=== PATIENT | female | born 1975 | race Caucasian/White ===

== ENCOUNTER 2021-09-27 11:44 | Emergency (ER) | payer SELFPAY ==
[~2021-09-27] VITALS: Ht 157.5 cm; Wt 93.4 kg
[2021-09-27] MEDS ORDERED: KETOROLAC 30 MG/ML VIAL IM ONE (12:25)
[2021-09-27] MEDS ORDERED: CYCLOBENZAPRINE 10 MG TAB PO ONE (12:25)
[2021-09-27] MEDS ORDERED: KETOROLAC 30 MG/ML VIAL ONE (13:45)
[2021-09-27] MEDS ORDERED: NAPR-54 PO (14:26)
[2021-09-27] MEDS ORDERED: CYCL-711 PO (14:26)
[2021-09-27] MEDS ORDERED: LIDO1ADH47 TP (14:26)
--- NOTE | 2021-09-27 14:49 | NUR ---
Patient discharged with v/s stable. Written and verbal after care instructions given and explained. Patient alert, oriented and verbalized understanding of instructions. Ambulatory with steady gait. All questions addressed prior to discharge. ID band removed. Patient advised to follow up with PMD. Rx of CYCLOBENZAPRINE, LIDOCAINE, NAPROXEN given. Patient educated on indication of medication including possible reaction and side effects. Opportunity to ask questions provided and answered.
== END 2021-09-27 14:49 | disposition home or self-care (01) ==
LOC: MED 11:44
DX: M79.10 Myalgia, unspecified site (principal); M54.2 Cervicalgia; Z79.899 Other long term (current) drug therapy; Z98.890 Other specified postprocedural states; W19.XXXA Unspecified fall, initial encounter; Y93.89 Activity, other specified; Y92.89 Other specified places as the place of occurrence of the external cause; Y99.8 Other external cause status
CPT/HCPCS: 72050; 73030; 73502; 73560; 81025; 96372; 99284; J1885

== ENCOUNTER 2022-02-23 15:29 | Emergency (ER) | payer SELFPAY ==
[~2022-02-23] VITALS: Ht 157.5 cm; Wt 98.6 kg
[~2022-02-23 15:29] MED LIST: CYCL-711 PO; LIDO1ADH47 TP; NAPR-54 PO
[2022-02-23 15:54] VITALS: BP 155/77
[2022-02-23] MEDS ORDERED: KETOROLAC 30 MG/ML VIAL IM ONE (16:30)
[2022-02-23] MEDS ORDERED: KETOROLAC 30 MG/ML VIAL ONE (17:38)
--- NOTE | 2022-02-23 18:09 | NUR ---
46 y/o female, c/o headaceh for 6 days pain radiates from head to left eye and side of face. no blurry vision, no facial droop, denies one sided weakness. denies cough, sob, n&v, sore throat, fevers, chills or anyone sick at home with same s/s. states pain worsened today with photophobia. a&ox4 [place] speaking, ambulates with steady gait. pmh: denies nka med: tylenol no relief
[2022-02-23] MEDS ORDERED: ACET-10509 PO (19:01)
== END 2022-02-23 19:09 | disposition home or self-care (01) ==
LOC: MED 15:29
DX: R51.9 Headache, unspecified (principal); Z79.899 Other long term (current) drug therapy
CPT/HCPCS: 96372; 99283; J1885